=== PATIENT | female | born 1945 | race Caucasian/White ===

== ENCOUNTER 2017-04-14 11:02 | Emergency (ER) | payer MEDICARE, OTHER ==
[~2017-04-14] VITALS: Ht 157.5 cm; Wt 97.5 kg
[~2017-04-14 11:02] MED LIST: ALLO100 PO; AMIT50 PO; AMLO10 PO; ASPI81CH PO; ATOR20 PO; ATOR40TA PO; ATOR80 PO; BENAML10/5 PO; BUPR150ER PO; CALCIUM 500 +1 EAC3 PO; CARBIDOPA PO; CEPH500 PO; CHLO25B PO; CHLOR PO; CHOL10002 PO; CLARITIN5 MG PO; CLOP75 PO; DIPASPER PO; DOCU100 PO; FURO20 PO; FURO40 PO; Ferrous Sulfat325 M2 PO; GABA100 PO; GABA300 PO; HYDACE10B PO; HYDCHL25 PO; Hair, Skin & N1 EACH PO; Keflex500 MG PO; Keppra1000 MG PO; LAVAP17G PO; LEVFLO500 PO; LEVODOPA PO; LEVSOD125 PO; LIDO5TO TOP; MECL12.5 PO; MECL25 PO; MELA3 PO; METF500 PO; METRIBP PO; MIRALAX17 GM PO; MIRAPEX PO; Melatonin5 M1 PO; Motion Sickness25 M1 PO; Motion Sickness25 M4 PO; OLME20 PO; OLME20-12. PO; ONDA4 PO; ONDA4ODT MM; PANT40 PO; POTA20PAC PO; POTASSIUM CHLO20 MEQ PO; POTCHL10ER PO; POTCHL20ER PO; PRAM.5 PO; PRAV20 PO; PRAV40 PO; PRED1 PO; SERT50 PO; Senna-Docusate1 EACH PO; TOPI25 PO; Tylophen500 MG PO; Ventolin5 MG/1 ML IH; Vitamin B Comple1 EA PO; XARELTO20 MG PO; ZYRTEC10 M1 PO; [UNRECOGNIZED DRUG - OTHER]; [UNRECOGNIZED DRUG - OTHER] PO
[2017-04-14 12:21] LABS: BASOPHILS ABSOLUTE AUTO 0.08 K/mm3 (0.00-0.23); BASOPHILS PERCENT AUTO 1 % (0-2); EOSINOPHILS ABSOLUTE AUTO 0.17 K/mm3 (0.00-0.68); EOSINOPHILS PERCENT AUTO 2 % (0-6); Hematocrit 40.9 % (33.0-51.0); Hemoglobin 13.9 g/dL (11.5-16.0); IMMATURE GRAN ABSOLUTE AUTO 0.05 K/mm3 (0.00-0.10); IMMATURE GRAN PERCENT AUTO 1 % (0-1); LYMPHOCYTES PERCENT AUTO 23 % (21-46); MONOCYTES ABSOLUTE AUTO 0.67 K/mm3 (0.16-1.47); MONOCYTES PERCENT AUTO 7 % (4-13); Mean Corpuscular HGB 30.5 pg (26.0-34.0); Mean Corpuscular Volume 90 fL (80-100); Mean Platelet Volume 10.8 fL (9.1-12.4); NEUTROPHILS PERCENT AUTO 67 % (41-73); Platelet Count 261 K/mm3 (150-400); RDW Standard Deviation 42.5 fL (35.1-46.3); Red Blood Cell Count 4.56 M/mm3 (3.80-5.20); White Blood Cell Count 9.67 K/mm3 (4.00-11.30)
[2017-04-14 12:49] LABS: Alanine Aminotransfer (ALT/SGP 27 U/L (12-78); Albumin, Blood 3.9 g/dL (3.4-5.0); Alk Phos 55 U/L (50-136); Anion Gap 9 mmol/L (6-16); Aspartate Aminotrans (AST/SGOT 14 U/L (12-37); Bilirubin, Total 0.4 mg/dL (0.1-1.0); Blood Urea Nitrogen 22 mg/dL (8-24); Bun/Creatinine Ratio 32.5 (12.0-20.0); CO2, Blood 31 mmol/L (21-32); Calcium, Blood 9.7 mg/dL (8.5-10.1); Chloride, Blood 100 mmol/L (98-108); Creatinine, Blood 0.68 mg/dL (0.40-1.00); Globulin, Blood 3.8 g/dL (2.2-4.0); Glomerular Filtration Rate >60 (60-); Glucose, Blood 351 mg/dL (70-99); Potassium, Blood 3.5 mmol/L (3.5-5.5); Sodium, Blood 140 mmol/L (136-145); Total Protein, Blood 7.7 g/dL (6.4-8.2)
[2017-04-14 14:21] LABS: Source, Urine Catheter
[2017-04-14 14:38] LABS: Bilirubin, Urine Neg (Neg); Blood, Urine Neg (Neg); Glucose Qualitative, Urine 4+ (Neg); Ketones, Urine Neg (Neg); Leukocyte Esterase, Urine 2+ (Neg); Nitrite, Urine Pos (Neg); Protein, Urine Neg (Neg); Specific Gravity, Urine 1.015 (1.003-1.022); Urobilinogen, Urine NORM (Normal)
[2017-04-14 14:52] LABS: Appearance, Urine Hazy (Clear); Color, Urine Pale Yellow (P-Yellow)
[2017-04-14 14:54] LABS: Bacteria Many /hpf; Red Blood Cells, Urine 0-2 /hpf (0-2); Squamous Epithelial Cells Few /hpf (Few)
[2017-04-14] MEDS ORDERED: FLUC150A PO (15:02)
[2017-04-14] MEDS ORDERED: LEVFLO500 PO (15:02)
[2017-07-15] MEDS ORDERED: METF500C PO (23:40)
== END 2017-04-14 15:47 | disposition home or self-care (01) ==
LOC: ER 11:02
PROVIDERS: Emergency Medicine
DX: N39.0 Urinary tract infection, site not specified (principal); E11.65 Type 2 diabetes mellitus with hyperglycemia; I10 Essential (primary) hypertension; K21.9 Gastro-esophageal reflux disease without esophagitis; E03.9 Hypothyroidism, unspecified; Z88.8 Allergy status to other drugs, medicaments and biological substances; Z88.5 Allergy status to narcotic agent; Z88.2 Allergy status to sulfonamides; Z88.1 Allergy status to other antibiotic agents; Z79.899 Other long term (current) drug therapy; Z86.73 Personal history of transient ischemic attack (TIA), and cerebral infarction without residual deficits; F32.9 Major depressive disorder, single episode, unspecified
CPT/HCPCS: 36415; 80053; 81001; 82947; 85025; 87077; 87086; 87186; 93005; 93010; 99284; P9612

== ENCOUNTER 2017-05-12 10:20 | Emergency (ER) | payer MEDICARE, OTHER ==
[~2017-05-12] VITALS: Ht 157.5 cm; Wt 102.1 kg
[~2017-05-12 10:20] MED LIST changes: +FLUC150A PO
[2017-05-12] MEDS ORDERED: CLOP75 PO (10:42)
[2017-05-12 11:35] LABS: BASOPHILS ABSOLUTE AUTO 0.07 K/mm3 (0.00-0.23); BASOPHILS PERCENT AUTO 1 % (0-2); EOSINOPHILS ABSOLUTE AUTO 0.18 K/mm3 (0.00-0.68); EOSINOPHILS PERCENT AUTO 2 % (0-6); Hematocrit 43.1 % (33.0-51.0); Hemoglobin 14.8 g/dL (11.5-16.0); IMMATURE GRAN ABSOLUTE AUTO 0.06 K/mm3 (0.00-0.10); IMMATURE GRAN PERCENT AUTO 1 % (0-1); LYMPHOCYTES PERCENT AUTO 23 % (21-46); MONOCYTES ABSOLUTE AUTO 0.63 K/mm3 (0.16-1.47); MONOCYTES PERCENT AUTO 7 % (4-13); Mean Corpuscular HGB 30.8 pg (26.0-34.0); Mean Corpuscular HGB Conc 34.3 g/dL (31.5-36.5); Mean Corpuscular Volume 90 fL (80-100); Mean Platelet Volume 10.7 fL (9.1-12.4); NEUTROPHILS ABSOLUTE AUTO 6.34 K/mm3 (1.96-9.15); NEUTROPHILS PERCENT AUTO 67 % (41-73); Platelet Count 291 K/mm3 (150-400); RDW Coefficient Variation 12.9 % (11.7-14.2); RDW Standard Deviation 42.2 fL (35.1-46.3); White Blood Cell Count 9.48 K/mm3 (4.00-11.30)
[2017-05-12 11:57] LABS: Troponin I <0.015 ng/mL (0.000-0.040)
[2017-05-12 12:06] LABS: Alanine Aminotransfer (ALT/SGP 28 U/L (12-78); Albumin, Blood 4.1 g/dL (3.4-5.0); Alk Phos 56 U/L (50-136); Anion Gap 13 mmol/L (6-16); Aspartate Aminotrans (AST/SGOT 16 U/L (12-37); Bilirubin, Total 0.4 mg/dL (0.1-1.0); Blood Urea Nitrogen 20 mg/dL (8-24); Bun/Creatinine Ratio 32.3 (12.0-20.0); CO2, Blood 26 mmol/L (21-32); Calcium, Blood 10.1 mg/dL (8.5-10.1); Chloride, Blood 100 mmol/L (98-108); Creatinine, Blood 0.62 mg/dL (0.40-1.00); Globulin, Blood 4.1 g/dL (2.2-4.0); Glomerular Filtration Rate >60 (60-); Glucose, Blood 196 mg/dL (70-99); Potassium, Blood 3.3 mmol/L (3.5-5.5); Sodium, Blood 139 mmol/L (136-145); Total Protein, Blood 8.2 g/dL (6.4-8.2)
[2017-05-12 13:55] LABS: Source, Urine Clean Catch
[2017-05-12 14:05] LABS: Bilirubin, Urine Neg (Neg); Blood, Urine 1+ (Neg); Glucose Qualitative, Urine Neg (Neg); Ketones, Urine Neg (Neg); Leukocyte Esterase, Urine 3+ (Neg); Nitrite, Urine Pos (Neg); Protein, Urine Neg (Neg); Urobilinogen, Urine NORM (Normal)
[2017-05-12 14:29] LABS: Appearance, Urine Hazy (Clear); Color, Urine Yellow (P-Yellow)
[2017-05-12 14:30] LABS: Amorphous Heavy (0-Heavy); Bacteria Many /hpf; Squamous Epithelial Cells Few /hpf (Few)
[2017-05-12] MEDS ORDERED: CEPH500 PO ×2 (14:35→15:10)
[2017-07-15] MEDS ORDERED: METF500C PO (23:40)
== END 2017-05-12 15:30 | disposition home or self-care (01) ==
LOC: ER 10:20
PROVIDERS: Emergency Medicine
DX: S09.90XA Unspecified injury of head, initial encounter (principal); N39.0 Urinary tract infection, site not specified; F03.90 Unspecified dementia, unspecified severity, without behavioral disturbance, psychotic disturbance, mood disturbance, and anxiety; I10 Essential (primary) hypertension; K21.9 Gastro-esophageal reflux disease without esophagitis; E03.9 Hypothyroidism, unspecified; F32.9 Major depressive disorder, single episode, unspecified; Z88.8 Allergy status to other drugs, medicaments and biological substances; Z86.73 Personal history of transient ischemic attack (TIA), and cerebral infarction without residual deficits; Z88.5 Allergy status to narcotic agent; Z88.2 Allergy status to sulfonamides; Z88.1 Allergy status to other antibiotic agents; Z79.899 Other long term (current) drug therapy; Z79.02 Long term (current) use of antithrombotics/antiplatelets; W19.XXXA Unspecified fall, initial encounter; Y92.009 Unspecified place in unspecified non-institutional (private) residence as the place of occurrence of the external cause
CPT/HCPCS: 36415; 70450; 80053; 81001; 84484; 85025; 87077; 87086; 87186; 93005; 93010; 96374; 99284; J0696

== ENCOUNTER 2017-05-21 11:05 | Emergency (ER) | payer MEDICARE, OTHER ==
[~2017-05-21] VITALS: Ht 157.5 cm; Wt 102.1 kg
[2017-05-21 11:40] LABS: Source, Urine Catheter
[2017-05-21 11:51] LABS: Bilirubin, Urine Neg (Neg); Blood, Urine Neg (Neg); Glucose Qualitative, Urine Neg (Neg); Ketones, Urine Neg (Neg); Leukocyte Esterase, Urine Neg (Neg); Nitrite, Urine Neg (Neg); Protein, Urine 1+ (Neg); Urobilinogen, Urine NORM (Normal)
[2017-05-21 11:54] LABS: BASOPHILS ABSOLUTE AUTO 0.09 K/mm3 (0.00-0.23); BASOPHILS PERCENT AUTO 1 % (0-2); EOSINOPHILS ABSOLUTE AUTO 0.22 K/mm3 (0.00-0.68); EOSINOPHILS PERCENT AUTO 2 % (0-6); Hematocrit 43.2 % (33.0-51.0); Hemoglobin 14.5 g/dL (11.5-16.0); IMMATURE GRAN ABSOLUTE AUTO 0.06 K/mm3 (0.00-0.10); IMMATURE GRAN PERCENT AUTO 1 % (0-1); LYMPHOCYTES ABSOLUTE AUTO 2.59 K/mm3 (0.84-5.20); LYMPHOCYTES PERCENT AUTO 22 % (21-46); MONOCYTES ABSOLUTE AUTO 0.78 K/mm3 (0.16-1.47); MONOCYTES PERCENT AUTO 7 % (4-13); Mean Corpuscular HGB 30.9 pg (26.0-34.0); Mean Corpuscular HGB Conc 33.6 g/dL (31.5-36.5); Mean Corpuscular Volume 92 fL (80-100); Mean Platelet Volume 10.8 fL (9.1-12.4); NEUTROPHILS ABSOLUTE AUTO 7.82 K/mm3 (1.96-9.15); NEUTROPHILS PERCENT AUTO 68 % (41-73); Platelet Count 296 K/mm3 (150-400); RDW Coefficient Variation 12.9 % (11.7-14.2); RDW Standard Deviation 43.4 fL (35.1-46.3); Red Blood Cell Count 4.69 M/mm3 (3.80-5.20); White Blood Cell Count 11.56 K/mm3 (4.00-11.30)
[2017-05-21 12:06] LABS: Appearance, Urine Clear (Clear); Color, Urine Yellow (P-Yellow)
[2017-05-21 12:09] LABS: Alanine Aminotransfer (ALT/SGP 28 U/L (12-78); Albumin, Blood 4.1 g/dL (3.4-5.0); Alk Phos 56 U/L (50-136); Anion Gap 8 mmol/L (6-16); Aspartate Aminotrans (AST/SGOT 15 U/L (12-37); Bilirubin, Total 0.4 mg/dL (0.1-1.0); Blood Urea Nitrogen 23 mg/dL (8-24); Bun/Creatinine Ratio 37.3 (12.0-20.0); CO2, Blood 27 mmol/L (21-32); Calcium, Blood 9.8 mg/dL (8.5-10.1); Chloride, Blood 101 mmol/L (98-108); Creatinine, Blood 0.62 mg/dL (0.40-1.00); Globulin, Blood 4.2 g/dL (2.2-4.0); Glomerular Filtration Rate >60 (60-); Glucose, Blood 231 mg/dL (70-99); Potassium, Blood 3.4 mmol/L (3.5-5.5); Sodium, Blood 136 mmol/L (136-145); Total Protein, Blood 8.3 g/dL (6.4-8.2)
[2017-07-15] MEDS ORDERED: METF500C PO (23:40)
== END 2017-05-21 13:48 | disposition home or self-care (01) ==
LOC: ER 11:05
PROVIDERS: Emergency Medicine
DX: E87.6 Hypokalemia (principal); R53.1 Weakness; E86.0 Dehydration; R11.0 Nausea; Z88.8 Allergy status to other drugs, medicaments and biological substances; Z88.5 Allergy status to narcotic agent; Z88.2 Allergy status to sulfonamides; Z79.899 Other long term (current) drug therapy; Z86.73 Personal history of transient ischemic attack (TIA), and cerebral infarction without residual deficits; I10 Essential (primary) hypertension; F03.90 Unspecified dementia, unspecified severity, without behavioral disturbance, psychotic disturbance, mood disturbance, and anxiety; K21.9 Gastro-esophageal reflux disease without esophagitis; E03.9 Hypothyroidism, unspecified
CPT/HCPCS: 80053; 85025; 96360; 99284; J7030; P9612

== ENCOUNTER 2017-07-10 14:47 | Emergency (ER) | payer MEDICARE, OTHER ==
[~2017-07-10] VITALS: Ht 157.5 cm; Wt 97.5 kg
[~2017-07-10 14:47] MED LIST changes: +ACET325 PO; +CLOP75; -POTA20PAC PO; -Tylophen500 MG PO
[2017-07-10 17:59] LABS: Source, Urine Catheter
[2017-07-10 18:11] LABS: Bilirubin, Urine Neg (Neg); Blood, Urine 1+ (Neg); Color, Urine Yellow (P-Yellow); Glucose Qualitative, Urine Neg (Neg); Ketones, Urine Neg (Neg); Leukocyte Esterase, Urine 3+ (Neg); Nitrite, Urine Pos (Neg); Protein, Urine 2+ (Neg); Urobilinogen, Urine NORM (Normal)
[2017-07-10 18:43] LABS: Appearance, Urine Cloudy (Clear)
[2017-07-10 18:44] LABS: Bacteria Many /hpf; Squamous Epithelial Cells Few /hpf (Few); White Blood Cells, Urine TNTC /hpf (0-5)
[2017-07-10] MEDS ORDERED: CEPH500 PO (18:53)
== END 2017-07-10 19:15 | disposition home or self-care (01) ==
LOC: ER 14:47
PROVIDERS: Emergency Medicine
DX: N39.0 Urinary tract infection, site not specified (principal); E03.9 Hypothyroidism, unspecified; E11.9 Type 2 diabetes mellitus without complications; F32.9 Major depressive disorder, single episode, unspecified; K21.9 Gastro-esophageal reflux disease without esophagitis; Z79.899 Other long term (current) drug therapy
CPT/HCPCS: 81001; 87077; 87086; 87186; P9612

== ENCOUNTER 2017-07-15 12:39 | Observation (INO) | payer MEDICARE, OTHER ==
[~2017-07-15] VITALS: Ht 154.9 cm; Wt 87.4 kg
[~2017-07-15 12:39] MED LIST changes: -CLOP75
[2017-07-15 13:54] LABS: BASOPHILS ABSOLUTE AUTO 0.07 K/mm3 (0.00-0.23); BASOPHILS PERCENT AUTO 1 % (0-2); EOSINOPHILS ABSOLUTE AUTO 0.19 K/mm3 (0.00-0.68); EOSINOPHILS PERCENT AUTO 2 % (0-6); Hematocrit 42.7 % (33.0-51.0); Hemoglobin 14.5 g/dL (11.5-16.0); IMMATURE GRAN ABSOLUTE AUTO 0.07 K/mm3 (0.00-0.10); IMMATURE GRAN PERCENT AUTO 1 % (0-1); LYMPHOCYTES ABSOLUTE AUTO 2.54 K/mm3 (0.84-5.20); LYMPHOCYTES PERCENT AUTO 25 % (21-46); MONOCYTES ABSOLUTE AUTO 0.71 K/mm3 (0.16-1.47); MONOCYTES PERCENT AUTO 7 % (4-13); Mean Corpuscular HGB 31.8 pg (26.0-34.0); Mean Corpuscular Volume 94 fL (80-100); Mean Platelet Volume 10.6 fL (9.1-12.4); NEUTROPHILS ABSOLUTE AUTO 6.71 K/mm3 (1.96-9.15); NEUTROPHILS PERCENT AUTO 65 % (41-73); Platelet Count 278 K/mm3 (150-400); RDW Coefficient Variation 12.6 % (11.7-14.2); RDW Standard Deviation 43.2 fL (35.1-46.3); Red Blood Cell Count 4.56 M/mm3 (3.80-5.20); White Blood Cell Count 10.29 K/mm3 (4.00-11.30)
[2017-07-15 14:25] LABS: Alanine Aminotransfer (ALT/SGP 34 U/L (12-78); Albumin/Globulin Ratio 1.1 (0.8-1.8); Alk Phos 50 U/L (50-136); Anion Gap 8 mmol/L (6-16); Aspartate Aminotrans (AST/SGOT 14 U/L (12-37); Bilirubin, Total 0.4 mg/dL (0.1-1.0); Blood Urea Nitrogen 22 mg/dL (8-24); Bun/Creatinine Ratio 30.5 (12.0-20.0); CO2, Blood 30 mmol/L (21-32); Calcium, Blood 10.2 mg/dL (8.5-10.1); Chloride, Blood 102 mmol/L (98-108); Creatinine, Blood 0.72 mg/dL (0.40-1.00); Globulin, Blood 3.8 g/dL (2.2-4.0); Glomerular Filtration Rate >60 (60-); Glucose, Blood 164 mg/dL (70-99); Potassium, Blood 3.5 mmol/L (3.5-5.5); Sodium, Blood 140 mmol/L (136-145); Total Protein, Blood 7.8 g/dL (6.4-8.2)
[2017-07-15 15:40] LABS: Troponin I <0.015 ng/mL (0.000-0.040)
[2017-07-15] MEDS ORDERED: METF500 PO (23:40)
[2017-07-16 04:55] LABS: Hematocrit 38.1 % (33.0-51.0); Mean Corpuscular HGB 31.9 pg (26.0-34.0); Mean Corpuscular HGB Conc 34.1 g/dL (31.5-36.5); Mean Corpuscular Volume 94 fL (80-100); Mean Platelet Volume 10.5 fL (9.1-12.4); Platelet Count 229 K/mm3 (150-400); RDW Coefficient Variation 12.6 % (11.7-14.2); Red Blood Cell Count 4.07 M/mm3 (3.80-5.20); White Blood Cell Count 8.53 K/mm3 (4.00-11.30)
[2017-07-16 05:16] LABS: Anion Gap 9 mmol/L (6-16); Blood Urea Nitrogen 17 mg/dL (8-24); Bun/Creatinine Ratio 27.8 (12.0-20.0); CO2, Blood 27 mmol/L (21-32); Calcium, Blood 9.3 mg/dL (8.5-10.1); Chloride, Blood 105 mmol/L (98-108); Creatinine, Blood 0.61 mg/dL (0.40-1.00); Glomerular Filtration Rate >60 (60-); Glucose, Blood 154 mg/dL (70-99); Potassium, Blood 3.3 mmol/L (3.5-5.5); Sodium, Blood 141 mmol/L (136-145)
[2017-07-17 06:16] LABS: Anion Gap 10 mmol/L (6-16); Blood Urea Nitrogen 16 mg/dL (8-24); Bun/Creatinine Ratio 26.2 (12.0-20.0); CO2, Blood 27 mmol/L (21-32); Calcium, Blood 9.7 mg/dL (8.5-10.1); Chloride, Blood 104 mmol/L (98-108); Creatinine, Blood 0.61 mg/dL (0.40-1.00); Glomerular Filtration Rate >60 (60-); Glucose, Blood 164 mg/dL (70-99); Magnesium, Blood 1.5 mg/dL (1.6-2.4); Potassium, Blood 3.2 mmol/L (3.5-5.5); Sodium, Blood 141 mmol/L (136-145)
[2017-07-17] MEDS ORDERED: CEFU500T30 PO (12:00)
== END 2017-07-17 12:41 | disposition home or self-care (01) ==
LOC: ER 12:39 → MEDS 12:40 → UNDODEPER 07-16 05:50 → MEDS 07-17 08:07 → ENPENDDIS 07-17 11:00 → MEDS 07-17 12:41
PROVIDERS: Emergency Medicine; Internal Medicine; Nurse Practitioner Acute Care
DX: R53.1 Weakness (principal); N39.0 Urinary tract infection, site not specified; B96.20 Unspecified Escherichia coli [E. coli] as the cause of diseases classified elsewhere; E86.0 Dehydration; I10 Essential (primary) hypertension; F32.9 Major depressive disorder, single episode, unspecified; E03.9 Hypothyroidism, unspecified; E11.9 Type 2 diabetes mellitus without complications; K21.9 Gastro-esophageal reflux disease without esophagitis; M06.9 Rheumatoid arthritis, unspecified; R51 Headache; R44.3 Hallucinations, unspecified; Z86.73 Personal history of transient ischemic attack (TIA), and cerebral infarction without residual deficits; Z79.02 Long term (current) use of antithrombotics/antiplatelets; Z79.899 Other long term (current) drug therapy; Z88.5 Allergy status to narcotic agent; Z88.8 Allergy status to other drugs, medicaments and biological substances; Z88.2 Allergy status to sulfonamides; Z79.01 Long term (current) use of anticoagulants; Z87.440 Personal history of urinary (tract) infections
CPT/HCPCS: 36415; 70450; 71046; 80048; 80053; 81000; 82947; 83690; 83735; 83880; 84100; 84484; 85025; 85027; 93005; 93010; 94762; 96361; 96365; 96366; 96372; 96375; 97162; 97166; 97530; 99285; G0378; G8978; G8979; G8980; G8987; G8988; G8989; J0696; J1650; J3475; J7030; P9612

== ENCOUNTER 2017-08-13 18:50 | Inpatient (IN) | payer MEDICARE, OTHER ==
[~2017-08-13] VITALS: Ht 167.6 cm; Wt 94.2 kg
[~2017-08-13 18:50] MED LIST changes: +CEFU500T30 PO; +METF500C PO
[2017-08-13 19:00] LABS: Calcium, Ionized (POC) 1.24 mmol/L (1.10-1.46); Chloride (POC) 102 mmol/L (98-108); Creatinine (POC) 0.6 mg/dL (0.6-1.0); Glucose (ISTAT POC) 128 mg/dL (70-99); Hemoglobin (POC) 15.6 g/dL (12.0-16.0); Potassium (POC) 3.7 mmol/L (3.5-5.5); Sodium (POC) 140 mmol/L (135-148); Total CO2 (POC) 19 mmol/L (21-32)
[2017-08-13 19:03] LABS: Hematocrit 45.2 % (33.0-51.0); Hemoglobin 15.2 g/dL (11.5-16.0); Mean Corpuscular HGB Conc 33.6 g/dL (31.5-36.5); Mean Corpuscular Volume 95 fL (80-100); Mean Platelet Volume 10.6 fL (9.1-12.4); Platelet Count 283 K/mm3 (150-400); RDW Coefficient Variation 12.5 % (11.7-14.2); RDW Standard Deviation 43.3 fL (35.1-46.3); Red Blood Cell Count 4.75 M/mm3 (3.80-5.20); White Blood Cell Count 15.57 K/mm3 (4.00-11.30)
[2017-08-13 19:21] LABS: BASOPHILS ABSOLUTE MAN 0.15 K/mm3 (0.00-0.23); BASOPHILS PERCENT MAN 1 % (0-2); EOSINOPHILS ABSOLUTE MAN 0.46 K/mm3 (0.00-0.68); EOSINOPHILS PERCENT MAN 3 % (0-6); LYMPHOCYTES % ATYPICAL MANUAL 10 % (0-0); LYMPHOCYTES PERCENT MAN 35 % (21-46); MONOCYTES ABSOLUTE MAN 0.46 K/mm3 (0.16-1.47); MONOCYTES PERCENT MAN 3 % (4-13); NEUTROPHILS ABSOLUTE MAN 7.47 K/mm3 (1.96-9.15); SEG NEUTROPHILS PERCENT MAN 48 % (41-73); TOTAL CELLS COUNTED 100
[2017-08-13 19:27] LABS: Magnesium, Blood 1.6 mg/dL (1.6-2.4); Troponin I <0.015 ng/mL (0.000-0.040)
[2017-08-13 19:31] LABS: Alanine Aminotransfer (ALT/SGP 35 U/L (12-78); Albumin, Blood 4.4 g/dL (3.4-5.0); Albumin/Globulin Ratio 1.1 (0.8-1.8); Alk Phos 54 U/L (50-136); Anion Gap 18 mmol/L (6-16); Aspartate Aminotrans (AST/SGOT 15 U/L (12-37); Bilirubin, Total 0.3 mg/dL (0.1-1.0); Blood Urea Nitrogen 20 mg/dL (8-24); Bun/Creatinine Ratio 27.8 (12.0-20.0); CO2, Blood 19 mmol/L (21-32); Calcium, Blood 10.1 mg/dL (8.5-10.1); Chloride, Blood 102 mmol/L (98-108); Creatinine, Blood 0.72 mg/dL (0.40-1.00); Globulin, Blood 3.9 g/dL (2.2-4.0); Glomerular Filtration Rate >60 (60-); Glucose, Blood 131 mg/dL (70-99); Potassium, Blood 3.7 mmol/L (3.5-5.5); Sodium, Blood 139 mmol/L (136-145); Total Protein, Blood 8.3 g/dL (6.4-8.2)
[2017-08-13 19:33] LABS: Source, Urine Catheter
[2017-08-13 19:53] LABS: Appearance, Urine Hazy (Clear); Bilirubin, Urine Neg (Neg); Blood, Urine 1+ (Neg); Color, Urine Yellow (P-Yellow); Glucose Qualitative, Urine Neg (Neg); Ketones, Urine 2+ (Neg); Leukocyte Esterase, Urine Neg (Neg); Nitrite, Urine Neg (Neg); Protein, Urine 3+ (Neg); Urobilinogen, Urine NORM (Normal)
[2017-08-13 20:06] LABS: Amorphous Mod (0-Heavy); Bacteria Few /hpf; Red Blood Cells, Urine 0-2 /hpf (0-2); Squamous Epithelial Cells Few /hpf (Few); White Blood Cells, Urine 0-2 /hpf (0-5)
[2017-08-14 04:46] LABS: Hematocrit 38.1 % (33.0-51.0); Hemoglobin 13.1 g/dL (11.5-16.0); Mean Corpuscular HGB 31.9 pg (26.0-34.0); Mean Corpuscular HGB Conc 34.4 g/dL (31.5-36.5); Mean Corpuscular Volume 93 fL (80-100); Mean Platelet Volume 10.5 fL (9.1-12.4); Platelet Count 252 K/mm3 (150-400); RDW Coefficient Variation 12.5 % (11.7-14.2); Red Blood Cell Count 4.11 M/mm3 (3.80-5.20); White Blood Cell Count 13.29 K/mm3 (4.00-11.30)
[2017-08-14 05:02] LABS: Anion Gap 8 mmol/L (6-16); Blood Urea Nitrogen 15 mg/dL (8-24); Bun/Creatinine Ratio 21.7 (12.0-20.0); CO2, Blood 30 mmol/L (21-32); Calcium, Blood 9.5 mg/dL (8.5-10.1); Chloride, Blood 101 mmol/L (98-108); Creatinine, Blood 0.69 mg/dL (0.40-1.00); Glomerular Filtration Rate >60 (60-); Glucose, Blood 158 mg/dL (70-99); Magnesium, Blood 1.6 mg/dL (1.6-2.4); Potassium, Blood 3.3 mmol/L (3.5-5.5); Sodium, Blood 139 mmol/L (136-145)
[2017-08-15 08:18] LABS: Anion Gap 8 mmol/L (6-16); Blood Urea Nitrogen 10 mg/dL (8-24); Bun/Creatinine Ratio 14.3 (12.0-20.0); CO2, Blood 31 mmol/L (21-32); Chloride, Blood 106 mmol/L (98-108); Glomerular Filtration Rate >60 (60-); Glucose, Blood 145 mg/dL (70-99); Magnesium, Blood 1.5 mg/dL (1.6-2.4); Potassium, Blood 3.6 mmol/L (3.5-5.5); Sodium, Blood 145 mmol/L (136-145)
[2017-08-16 05:25] LABS: BASOPHILS ABSOLUTE AUTO 0.05 K/mm3 (0.00-0.23); BASOPHILS PERCENT AUTO 1 % (0-2); EOSINOPHILS ABSOLUTE AUTO 0.25 K/mm3 (0.00-0.68); EOSINOPHILS PERCENT AUTO 2 % (0-6); Hematocrit 39.9 % (33.0-51.0); Hemoglobin 13.6 g/dL (11.5-16.0); IMMATURE GRAN ABSOLUTE AUTO 0.09 K/mm3 (0.00-0.10); IMMATURE GRAN PERCENT AUTO 1 % (0-1); LYMPHOCYTES ABSOLUTE AUTO 2.97 K/mm3 (0.84-5.20); LYMPHOCYTES PERCENT AUTO 29 % (21-46); MONOCYTES ABSOLUTE AUTO 0.79 K/mm3 (0.16-1.47); MONOCYTES PERCENT AUTO 8 % (4-13); Mean Corpuscular HGB 31.5 pg (26.0-34.0); Mean Corpuscular HGB Conc 34.1 g/dL (31.5-36.5); Mean Corpuscular Volume 92 fL (80-100); Mean Platelet Volume 10.5 fL (9.1-12.4); NEUTROPHILS ABSOLUTE AUTO 6.16 K/mm3 (1.96-9.15); NEUTROPHILS PERCENT AUTO 60 % (41-73); Platelet Count 260 K/mm3 (150-400); RDW Coefficient Variation 12.7 % (11.7-14.2); RDW Standard Deviation 42.4 fL (35.1-46.3); Red Blood Cell Count 4.32 M/mm3 (3.80-5.20); White Blood Cell Count 10.31 K/mm3 (4.00-11.30)
[2017-08-16 05:47] LABS: Magnesium, Blood 1.6 mg/dL (1.6-2.4)
[2017-08-16 05:50] LABS: Anion Gap 9 mmol/L (6-16); Blood Urea Nitrogen 11 mg/dL (8-24); Bun/Creatinine Ratio 15.8 (12.0-20.0); CO2, Blood 30 mmol/L (21-32); Calcium, Blood 9.7 mg/dL (8.5-10.1); Chloride, Blood 102 mmol/L (98-108); Glomerular Filtration Rate >60 (60-); Glucose, Blood 139 mg/dL (70-99); Phosphorus, Blood 2.1 mg/dL (2.5-4.9); Potassium, Blood 3.2 mmol/L (3.5-5.5); Sodium, Blood 141 mmol/L (136-145)
[2017-08-17 05:15] LABS: Albumin, Blood 3.6 g/dL (3.4-5.0); Anion Gap 10 mmol/L (6-16); Blood Urea Nitrogen 11 mg/dL (8-24); Bun/Creatinine Ratio 17.4 (12.0-20.0); CO2, Blood 28 mmol/L (21-32); Calcium, Blood 10.3 mg/dL (8.5-10.1); Chloride, Blood 102 mmol/L (98-108); Creatinine, Blood 0.63 mg/dL (0.40-1.00); Glomerular Filtration Rate >60 (60-); Glucose, Blood 155 mg/dL (70-99); Phosphorus, Blood 3.5 mg/dL (2.5-4.9); Potassium, Blood 3.2 mmol/L (3.5-5.5); Sodium, Blood 140 mmol/L (136-145)
[2017-08-18 05:25] LABS: Albumin, Blood 3.6 g/dL (3.4-5.0); Anion Gap 8 mmol/L (6-16); Blood Urea Nitrogen 20 mg/dL (8-24); Bun/Creatinine Ratio 23.7 (12.0-20.0); CO2, Blood 28 mmol/L (21-32); Chloride, Blood 105 mmol/L (98-108); Creatinine, Blood 0.85 mg/dL (0.40-1.00); Glomerular Filtration Rate >60 (60-); Glucose, Blood 164 mg/dL (70-99); Potassium, Blood 3.6 mmol/L (3.5-5.5); Sodium, Blood 141 mmol/L (136-145)
[2017-08-19 06:02] LABS: Albumin, Blood 3.5 g/dL (3.4-5.0); Anion Gap 9 mmol/L (6-16); Blood Urea Nitrogen 26 mg/dL (8-24); Bun/Creatinine Ratio 35.6 (12.0-20.0); CO2, Blood 29 mmol/L (21-32); Calcium, Blood 9.9 mg/dL (8.5-10.1); Chloride, Blood 103 mmol/L (98-108); Creatinine, Blood 0.73 mg/dL (0.40-1.00); Glomerular Filtration Rate >60 (60-); Glucose, Blood 158 mg/dL (70-99); Phosphorus, Blood 2.7 mg/dL (2.5-4.9); Potassium, Blood 3.1 mmol/L (3.5-5.5); Sodium, Blood 141 mmol/L (136-145)
[2017-08-19] MEDS ORDERED: DILANTIN PO (14:34)
== END 2017-08-19 15:16 | disposition home health service (06) | DRG 101 ==
LOC: ER 18:50 → ICUW 21:02 → MEDS 21:02 → ICUW 22:04 → MEDS 22:55
PROVIDERS: Emergency Medicine; Internal Medicine; Nurse Practitioner Acute Care
PROC: 5A09357 Assistance with Respiratory Ventilation, Less than 24 Consecutive Hours, Continuous Positive Airway Pressure (ICD-10-PCS; principal; 2017-08-17)
DX: G40.89 Other seizures (principal); E87.2 Acidosis; I69.354 Hemiplegia and hemiparesis following cerebral infarction affecting left non-dominant side; N39.0 Urinary tract infection, site not specified; G47.33 Obstructive sleep apnea (adult) (pediatric); D72.829 Elevated white blood cell count, unspecified; B96.20 Unspecified Escherichia coli [E. coli] as the cause of diseases classified elsewhere; E11.65 Type 2 diabetes mellitus with hyperglycemia; E87.6 Hypokalemia; E83.42 Hypomagnesemia; E83.52 Hypercalcemia; E83.39 Other disorders of phosphorus metabolism; R53.1 Weakness; R53.81 Other malaise; D86.9 Sarcoidosis, unspecified; E78.5 Hyperlipidemia, unspecified; M06.9 Rheumatoid arthritis, unspecified; M10.9 Gout, unspecified; E03.9 Hypothyroidism, unspecified; F32.9 Major depressive disorder, single episode, unspecified; K21.9 Gastro-esophageal reflux disease without esophagitis; Z79.84 Long term (current) use of oral hypoglycemic drugs; Z79.02 Long term (current) use of antithrombotics/antiplatelets; Z79.899 Other long term (current) drug therapy; Z87.440 Personal history of urinary (tract) infections; Z88.8 Allergy status to other drugs, medicaments and biological substances; Z86.79 Personal history of other diseases of the circulatory system; Z98.890 Other specified postprocedural states
CPT/HCPCS: 36415; 51702; 70450; 71045; 80047; 80048; 80053; 80069; 81001; 82947; 83605; 83735; 84100; 84484; 85014; 85025; 85027; 87077; 87086; 87186; 93005; 93010; 94660; 94762; 96365; 96366; 96375; 97110; 97162; 97166; 97530; 99285; C1751; G8978; G8979; G8987; G8988; J0360; J1165; J1650; J1815; J1953; J2405; J3475; J7030; J7040; J7060; J7120

== ENCOUNTER 2017-10-01 07:29 | Inpatient (IN) | payer MEDICARE, OTHER ==
[~2017-10-01] VITALS: Ht 157.5 cm; Wt 87.0 kg
[~2017-10-01 07:29] MED LIST changes: -ACET325 PO; +DILANTIN PO; +POTA20PAC PO; +Tylophen500 MG PO
[2017-10-01] MEDS ORDERED: AZO CRANBERRY1 EACH PO (07:48)
[2017-10-01] MEDS ORDERED: PHENY100ER PO (07:54)
[2017-10-01 08:24] LABS: BASOPHILS ABSOLUTE AUTO 0.07 K/mm3 (0.00-0.23); BASOPHILS PERCENT AUTO 1 % (0-2); EOSINOPHILS PERCENT AUTO 2 % (0-6); Hematocrit 42.7 % (33.0-51.0); Hemoglobin 14.3 g/dL (11.5-16.0); IMMATURE GRAN ABSOLUTE AUTO 0.07 K/mm3 (0.00-0.10); IMMATURE GRAN PERCENT AUTO 1 % (0-1); LYMPHOCYTES PERCENT AUTO 30 % (21-46); MONOCYTES ABSOLUTE AUTO 0.48 K/mm3 (0.16-1.47); MONOCYTES PERCENT AUTO 6 % (4-13); Mean Corpuscular HGB 31.4 pg (26.0-34.0); Mean Corpuscular HGB Conc 33.5 g/dL (31.5-36.5); Mean Corpuscular Volume 94 fL (80-100); Mean Platelet Volume 10.9 fL (9.1-12.4); NEUTROPHILS ABSOLUTE AUTO 5.38 K/mm3 (1.96-9.15); NEUTROPHILS PERCENT AUTO 61 % (41-73); Platelet Count 280 K/mm3 (150-400); RDW Coefficient Variation 12.7 % (11.7-14.2); RDW Standard Deviation 43.4 fL (35.1-46.3); Red Blood Cell Count 4.56 M/mm3 (3.80-5.20)
[2017-10-01 09:06] LABS: Alanine Aminotransfer (ALT/SGP 52 U/L (12-78); Albumin, Blood 4.1 g/dL (3.4-5.0); Albumin/Globulin Ratio 1.1 (0.8-1.8); Alk Phos 70 U/L (50-136); Anion Gap 12 mmol/L (6-16); Aspartate Aminotrans (AST/SGOT 28 U/L (12-37); Bilirubin, Total 0.2 mg/dL (0.1-1.0); Blood Urea Nitrogen 20 mg/dL (8-24); CO2, Blood 26 mmol/L (21-32); CPK Creatine Kinase 61 U/L (26-193); Calcium, Blood 9.3 mg/dL (8.5-10.1); Chloride, Blood 101 mmol/L (98-108); Creatinine, Blood 0.67 mg/dL (0.40-1.00); Globulin, Blood 3.9 g/dL (2.2-4.0); Glomerular Filtration Rate >60 (60-); Glucose, Blood 177 mg/dL (70-99); Potassium, Blood 3.4 mmol/L (3.5-5.5); Sodium, Blood 139 mmol/L (136-145)
[2017-10-01 10:14] LABS: Dilantin (Phenytoin), Total 7.6 ug/mL (10.0-20.0)
[2017-10-01] MEDS ORDERED: SENNA LAXATIVE PO (12:08)
[2017-10-01] MEDS ORDERED: CENTRUM SILVER1 EAC3 PO (12:09)
[2017-10-02 05:28] LABS: BASOPHILS ABSOLUTE AUTO 0.04 K/mm3 (0.00-0.23); BASOPHILS PERCENT AUTO 0 % (0-2); EOSINOPHILS ABSOLUTE AUTO 0.13 K/mm3 (0.00-0.68); EOSINOPHILS PERCENT AUTO 1 % (0-6); Hematocrit 40.2 % (33.0-51.0); Hemoglobin 13.6 g/dL (11.5-16.0); IMMATURE GRAN ABSOLUTE AUTO 0.05 K/mm3 (0.00-0.10); IMMATURE GRAN PERCENT AUTO 0 % (0-1); LYMPHOCYTES ABSOLUTE AUTO 2.86 K/mm3 (0.84-5.20); LYMPHOCYTES PERCENT AUTO 25 % (21-46); MONOCYTES ABSOLUTE AUTO 0.94 K/mm3 (0.16-1.47); MONOCYTES PERCENT AUTO 8 % (4-13); Mean Corpuscular HGB 31.8 pg (26.0-34.0); Mean Corpuscular HGB Conc 33.8 g/dL (31.5-36.5); Mean Corpuscular Volume 94 fL (80-100); Mean Platelet Volume 10.9 fL (9.1-12.4); NEUTROPHILS ABSOLUTE AUTO 7.65 K/mm3 (1.96-9.15); NEUTROPHILS PERCENT AUTO 66 % (41-73); Platelet Count 263 K/mm3 (150-400); RDW Coefficient Variation 12.8 % (11.7-14.2); RDW Standard Deviation 43.6 fL (35.1-46.3); Red Blood Cell Count 4.28 M/mm3 (3.80-5.20); White Blood Cell Count 11.67 K/mm3 (4.00-11.30)
[2017-10-02 06:03] LABS: Alanine Aminotransfer (ALT/SGP 42 U/L (12-78); Albumin, Blood 3.5 g/dL (3.4-5.0); Alk Phos 63 U/L (50-136); Anion Gap 9 mmol/L (6-16); Aspartate Aminotrans (AST/SGOT 50 U/L (12-37); Bilirubin, Total 0.5 mg/dL (0.1-1.0); Blood Urea Nitrogen 12 mg/dL (8-24); Bun/Creatinine Ratio 20.6 (12.0-20.0); CO2, Blood 28 mmol/L (21-32); Calcium, Blood 8.7 mg/dL (8.5-10.1); Chloride, Blood 103 mmol/L (98-108); Creatinine, Blood 0.58 mg/dL (0.40-1.00); Dilantin (Phenytoin), Total 3.4 ug/mL (10.0-20.0); Globulin, Blood 3.6 g/dL (2.2-4.0); Glomerular Filtration Rate >60 (60-); Glucose, Blood 151 mg/dL (70-99); Magnesium, Blood 1.5 mg/dL (1.6-2.4); Potassium, Blood 3.1 mmol/L (3.5-5.5); Sodium, Blood 140 mmol/L (136-145); Total Protein, Blood 7.1 g/dL (6.4-8.2)
[2017-10-03 05:33] LABS: BASOPHILS ABSOLUTE AUTO 0.06 K/mm3 (0.00-0.23); BASOPHILS PERCENT AUTO 0 % (0-2); EOSINOPHILS ABSOLUTE AUTO 0.07 K/mm3 (0.00-0.68); EOSINOPHILS PERCENT AUTO 1 % (0-6); Hematocrit 44.1 % (33.0-51.0); Hemoglobin 14.8 g/dL (11.5-16.0); IMMATURE GRAN ABSOLUTE AUTO 0.09 K/mm3 (0.00-0.10); IMMATURE GRAN PERCENT AUTO 1 % (0-1); LYMPHOCYTES ABSOLUTE AUTO 2.69 K/mm3 (0.84-5.20); LYMPHOCYTES PERCENT AUTO 18 % (21-46); MONOCYTES ABSOLUTE AUTO 1.03 K/mm3 (0.16-1.47); MONOCYTES PERCENT AUTO 7 % (4-13); Mean Corpuscular HGB 31.9 pg (26.0-34.0); Mean Corpuscular HGB Conc 33.6 g/dL (31.5-36.5); Mean Corpuscular Volume 95 fL (80-100); Mean Platelet Volume 11.3 fL (9.1-12.4); NEUTROPHILS ABSOLUTE AUTO 10.84 K/mm3 (1.96-9.15); NEUTROPHILS PERCENT AUTO 73 % (41-73); Platelet Count 287 K/mm3 (150-400); RDW Coefficient Variation 13.1 % (11.7-14.2); RDW Standard Deviation 45.1 fL (35.1-46.3); Red Blood Cell Count 4.64 M/mm3 (3.80-5.20); White Blood Cell Count 14.78 K/mm3 (4.00-11.30)
[2017-10-03 06:01] LABS: Alanine Aminotransfer (ALT/SGP 46 U/L (12-78); Albumin, Blood 3.6 g/dL (3.4-5.0); Albumin/Globulin Ratio 0.9 (0.8-1.8); Alk Phos 73 U/L (50-136); Anion Gap 8 mmol/L (6-16); Aspartate Aminotrans (AST/SGOT 36 U/L (12-37); Bilirubin, Total 0.3 mg/dL (0.1-1.0); Blood Urea Nitrogen 10 mg/dL (8-24); Bun/Creatinine Ratio 13.8 (12.0-20.0); CO2, Blood 31 mmol/L (21-32); Calcium, Blood 9.1 mg/dL (8.5-10.1); Chloride, Blood 102 mmol/L (98-108); Creatinine, Blood 0.73 mg/dL (0.40-1.00); Globulin, Blood 3.9 g/dL (2.2-4.0); Glomerular Filtration Rate >60 (60-); Glucose, Blood 171 mg/dL (70-99); Magnesium, Blood 1.4 mg/dL (1.6-2.4); Potassium, Blood 3.3 mmol/L (3.5-5.5); Sodium, Blood 141 mmol/L (136-145); Total Protein, Blood 7.5 g/dL (6.4-8.2)
[2017-10-04 05:16] LABS: BASOPHILS ABSOLUTE AUTO 0.05 K/mm3 (0.00-0.23); BASOPHILS PERCENT AUTO 1 % (0-2); EOSINOPHILS ABSOLUTE AUTO 0.14 K/mm3 (0.00-0.68); EOSINOPHILS PERCENT AUTO 1 % (0-6); Hematocrit 39.9 % (33.0-51.0); Hemoglobin 13.3 g/dL (11.5-16.0); IMMATURE GRAN ABSOLUTE AUTO 0.07 K/mm3 (0.00-0.10); IMMATURE GRAN PERCENT AUTO 1 % (0-1); LYMPHOCYTES ABSOLUTE AUTO 2.28 K/mm3 (0.84-5.20); LYMPHOCYTES PERCENT AUTO 22 % (21-46); MONOCYTES ABSOLUTE AUTO 0.87 K/mm3 (0.16-1.47); MONOCYTES PERCENT AUTO 8 % (4-13); Mean Corpuscular HGB 31.9 pg (26.0-34.0); Mean Corpuscular HGB Conc 33.3 g/dL (31.5-36.5); Mean Corpuscular Volume 96 fL (80-100); NEUTROPHILS PERCENT AUTO 68 % (41-73); Platelet Count 247 K/mm3 (150-400); RDW Coefficient Variation 13.2 % (11.7-14.2); RDW Standard Deviation 45.8 fL (35.1-46.3); Red Blood Cell Count 4.17 M/mm3 (3.80-5.20); White Blood Cell Count 10.51 K/mm3 (4.00-11.30)
[2017-10-04 05:42] LABS: Alanine Aminotransfer (ALT/SGP 46 U/L (12-78); Albumin, Blood 3.2 g/dL (3.4-5.0); Albumin/Globulin Ratio 0.8 (0.8-1.8); Alk Phos 61 U/L (50-136); Anion Gap 9 mmol/L (6-16); Aspartate Aminotrans (AST/SGOT 30 U/L (12-37); Bilirubin, Total 0.4 mg/dL (0.1-1.0); Blood Urea Nitrogen 13 mg/dL (8-24); CO2, Blood 30 mmol/L (21-32); Chloride, Blood 103 mmol/L (98-108); Creatinine, Blood 0.65 mg/dL (0.40-1.00); Globulin, Blood 3.8 g/dL (2.2-4.0); Glomerular Filtration Rate >60 (60-); Glucose, Blood 156 mg/dL (70-99); Potassium, Blood 3.2 mmol/L (3.5-5.5); Sodium, Blood 142 mmol/L (136-145)
[2017-10-05 05:03] LABS: BASOPHILS ABSOLUTE AUTO 0.06 K/mm3 (0.00-0.23); BASOPHILS PERCENT AUTO 1 % (0-2); EOSINOPHILS ABSOLUTE AUTO 0.16 K/mm3 (0.00-0.68); EOSINOPHILS PERCENT AUTO 2 % (0-6); Hematocrit 41.4 % (33.0-51.0); Hemoglobin 13.6 g/dL (11.5-16.0); IMMATURE GRAN ABSOLUTE AUTO 0.06 K/mm3 (0.00-0.10); IMMATURE GRAN PERCENT AUTO 1 % (0-1); LYMPHOCYTES ABSOLUTE AUTO 2.17 K/mm3 (0.84-5.20); LYMPHOCYTES PERCENT AUTO 20 % (21-46); MONOCYTES ABSOLUTE AUTO 0.85 K/mm3 (0.16-1.47); MONOCYTES PERCENT AUTO 8 % (4-13); Mean Corpuscular HGB 32.2 pg (26.0-34.0); Mean Corpuscular HGB Conc 32.9 g/dL (31.5-36.5); Mean Corpuscular Volume 98 fL (80-100); Mean Platelet Volume 11.1 fL (9.1-12.4); NEUTROPHILS ABSOLUTE AUTO 7.73 K/mm3 (1.96-9.15); NEUTROPHILS PERCENT AUTO 70 % (41-73); Platelet Count 271 K/mm3 (150-400); RDW Coefficient Variation 13.2 % (11.7-14.2); RDW Standard Deviation 47.6 fL (35.1-46.3); Red Blood Cell Count 4.22 M/mm3 (3.80-5.20); White Blood Cell Count 11.03 K/mm3 (4.00-11.30)
[2017-10-05 05:25] LABS: Alanine Aminotransfer (ALT/SGP 48 U/L (12-78); Albumin, Blood 3.2 g/dL (3.4-5.0); Albumin/Globulin Ratio 0.8 (0.8-1.8); Alk Phos 65 U/L (50-136); Anion Gap 8 mmol/L (6-16); Aspartate Aminotrans (AST/SGOT 31 U/L (12-37); Bilirubin, Total 0.3 mg/dL (0.1-1.0); Blood Urea Nitrogen 14 mg/dL (8-24); Bun/Creatinine Ratio 24.2 (12.0-20.0); CO2, Blood 30 mmol/L (21-32); Calcium, Blood 9.4 mg/dL (8.5-10.1); Chloride, Blood 106 mmol/L (98-108); Creatinine, Blood 0.58 mg/dL (0.40-1.00); Dilantin (Phenytoin), Total 6.1 ug/mL (10.0-20.0); Glomerular Filtration Rate >60 (60-); Glucose, Blood 165 mg/dL (70-99); Potassium, Blood 3.6 mmol/L (3.5-5.5); Sodium, Blood 144 mmol/L (136-145); Total Protein, Blood 7.2 g/dL (6.4-8.2)
[2017-10-06 04:57] LABS: BASOPHILS ABSOLUTE AUTO 0.05 K/mm3 (0.00-0.23); BASOPHILS PERCENT AUTO 1 % (0-2); EOSINOPHILS PERCENT AUTO 2 % (0-6); Hematocrit 41.4 % (33.0-51.0); Hemoglobin 13.3 g/dL (11.5-16.0); IMMATURE GRAN ABSOLUTE AUTO 0.04 K/mm3 (0.00-0.10); IMMATURE GRAN PERCENT AUTO 1 % (0-1); LYMPHOCYTES PERCENT AUTO 29 % (21-46); MONOCYTES ABSOLUTE AUTO 0.78 K/mm3 (0.16-1.47); MONOCYTES PERCENT AUTO 9 % (4-13); Mean Corpuscular HGB Conc 32.1 g/dL (31.5-36.5); Mean Corpuscular Volume 100 fL (80-100); Mean Platelet Volume 11.2 fL (9.1-12.4); NEUTROPHILS ABSOLUTE AUTO 5.17 K/mm3 (1.96-9.15); NEUTROPHILS PERCENT AUTO 58 % (41-73); Platelet Count 271 K/mm3 (150-400); RDW Coefficient Variation 13.2 % (11.7-14.2); Red Blood Cell Count 4.16 M/mm3 (3.80-5.20); White Blood Cell Count 8.84 K/mm3 (4.00-11.30)
[2017-10-06 05:16] LABS: Anion Gap 8 mmol/L (6-16); Blood Urea Nitrogen 16 mg/dL (8-24); Bun/Creatinine Ratio 23.6 (12.0-20.0); CO2, Blood 30 mmol/L (21-32); Calcium, Blood 9.1 mg/dL (8.5-10.1); Chloride, Blood 108 mmol/L (98-108); Creatinine, Blood 0.68 mg/dL (0.40-1.00); Dilantin (Phenytoin), Total 5.7 ug/mL (10.0-20.0); Glomerular Filtration Rate >60 (60-); Glucose, Blood 146 mg/dL (70-99); Potassium, Blood 3.9 mmol/L (3.5-5.5); Sodium, Blood 146 mmol/L (136-145)
[2017-10-07 05:42] LABS: Dilantin (Phenytoin), Total 7.3 ug/mL (10.0-20.0)
[2017-10-08 04:43] LABS: Dilantin (Phenytoin), Total 6.1 ug/mL (10.0-20.0)
[2017-10-09 05:29] LABS: Dilantin (Phenytoin), Total 6.8 ug/mL (10.0-20.0)
[2017-10-10 05:08] LABS: Dilantin (Phenytoin), Total 5.1 ug/mL (10.0-20.0)
[2017-10-10] MEDS ORDERED: POTA20LUD PO (13:41)
== END 2017-10-10 14:49 | disposition home health service (06) | DRG 100 ==
LOC: ER 07:29 → MEDS 07:30 → ER 07:30 → MEDS 11:21 → ENPENDDIS 10-10 08:53 → MEDS 10-10 14:49
PROVIDERS: Emergency Medicine; Hospitalist; Internal Medicine
DX: G40.409 Other generalized epilepsy and epileptic syndromes, not intractable, without status epilepticus (principal); J69.0 Pneumonitis due to inhalation of food and vomit; I69.154 Hemiplegia and hemiparesis following nontraumatic intracerebral hemorrhage affecting left non-dominant side; J84.9 Interstitial pulmonary disease, unspecified; E03.9 Hypothyroidism, unspecified; M10.9 Gout, unspecified; E78.5 Hyperlipidemia, unspecified; G47.33 Obstructive sleep apnea (adult) (pediatric); K21.9 Gastro-esophageal reflux disease without esophagitis; E87.6 Hypokalemia; I10 Essential (primary) hypertension; Z79.84 Long term (current) use of oral hypoglycemic drugs; M35.00 Sjogren syndrome, unspecified; F32.9 Major depressive disorder, single episode, unspecified; D50.9 Iron deficiency anemia, unspecified; E11.40 Type 2 diabetes mellitus with diabetic neuropathy, unspecified; G47.9 Sleep disorder, unspecified; E83.42 Hypomagnesemia; Z99.81 Dependence on supplemental oxygen
CPT/HCPCS: 36415; 51701; 70450; 71045; 80048; 80053; 80185; 80186; 82550; 82947; 83735; 85025; 94640; 94660; 94667; 94760; 94761; 94762; 96374; 96375; 97110; 97162; 97165; 97530; 99285-25; G8978; G8979; G8987; G8988; J0696; J1815; J1940; J2060; J2405; J3010; J3475; J3480; J7030

== ENCOUNTER → 2017-10-17 | Outpatient (CLI) | payer MEDICARE, OTHER ==
[~2017-10-17] MED LIST changes: +AZO CRANBERRY1 EACH PO; +CENTRUM SILVER1 EAC3 PO; +PHENY100ER PO; +POTA20LUD PO; +SENNA LAXATIVE PO
[2017-10-17 17:28] LABS: Dilantin (Phenytoin), Total 18.1 ug/mL (10.0-20.0)
== END | disposition home or self-care (01) ==
LOC: LAB SHORT 14:50 → LAB 14:50
PROVIDERS: Internal Medicine
DX: I63.9 Cerebral infarction, unspecified (principal)
CPT/HCPCS: 80185

== ENCOUNTER 2017-10-20 15:11 | Emergency (ER) | payer MEDICARE, OTHER ==
[~2017-10-20] VITALS: Ht 157.5 cm; Wt 88.5 kg
[2017-10-20 16:52] LABS: Source, Urine Catheter
[2017-10-20 17:00] LABS: Appearance, Urine Clear (Clear); Blood, Urine Neg (Neg); Color, Urine Amber (P-Yellow); Glucose Qualitative, Urine Neg (Neg); Ketones, Urine Neg (Neg); Leukocyte Esterase, Urine 1+ (Neg); Nitrite, Urine Neg (Neg); Protein, Urine 1+ (Neg); Specific Gravity, Urine 1.025 (1.003-1.022); Urobilinogen, Urine 2+ (Normal)
[2017-10-20 17:12] LABS: BASOPHILS ABSOLUTE AUTO 0.09 K/mm3 (0.00-0.23); BASOPHILS PERCENT AUTO 1 % (0-2); EOSINOPHILS ABSOLUTE AUTO 0.16 K/mm3 (0.00-0.68); EOSINOPHILS PERCENT AUTO 2 % (0-6); Hematocrit 42.8 % (33.0-51.0); Hemoglobin 14.4 g/dL (11.5-16.0); IMMATURE GRAN ABSOLUTE AUTO 0.02 K/mm3 (0.00-0.10); IMMATURE GRAN PERCENT AUTO 0 % (0-1); LYMPHOCYTES ABSOLUTE AUTO 2.97 K/mm3 (0.84-5.20); LYMPHOCYTES PERCENT AUTO 34 % (21-46); MONOCYTES ABSOLUTE AUTO 0.63 K/mm3 (0.16-1.47); MONOCYTES PERCENT AUTO 7 % (4-13); Mean Corpuscular HGB 32.6 pg (26.0-34.0); Mean Corpuscular HGB Conc 33.6 g/dL (31.5-36.5); Mean Corpuscular Volume 97 fL (80-100); NEUTROPHILS ABSOLUTE AUTO 4.83 K/mm3 (1.96-9.15); NEUTROPHILS PERCENT AUTO 56 % (41-73); Platelet Count 420 K/mm3 (150-400); RDW Coefficient Variation 12.6 % (11.7-14.2); RDW Standard Deviation 45.3 fL (35.1-46.3); Red Blood Cell Count 4.42 M/mm3 (3.80-5.20)
[2017-10-20 17:13] LABS: Bilirubin, Urine 1+ (Neg)
[2017-10-20 17:14] LABS: Bacteria Few /hpf; Mucus Light (0-Heavy); Red Blood Cells, Urine Not Seen /hpf (0-2); Squamous Epithelial Cells Few /hpf (Few); White Blood Cells, Urine 0-2 /hpf (0-5)
[2017-10-20 17:23] LABS: Alanine Aminotransfer (ALT/SGP 61 U/L (12-78); Albumin, Blood 3.8 g/dL (3.4-5.0); Alk Phos 95 U/L (50-136); Anion Gap 10 mmol/L (6-16); Aspartate Aminotrans (AST/SGOT 41 U/L (12-37); Bilirubin, Total 0.3 mg/dL (0.1-1.0); Blood Urea Nitrogen 29 mg/dL (8-24); Bun/Creatinine Ratio 48.3 (12.0-20.0); CO2, Blood 27 mmol/L (21-32); Calcium, Blood 10.1 mg/dL (8.5-10.1); Chloride, Blood 103 mmol/L (98-108); Glomerular Filtration Rate >60 (60-); Glucose, Blood 109 mg/dL (70-99); Potassium, Blood 3.7 mmol/L (3.5-5.5); Sodium, Blood 140 mmol/L (136-145); Total Protein, Blood 7.8 g/dL (6.4-8.2)
[2017-10-20 18:08] LABS: Dilantin (Phenytoin), Total 22.7 ug/mL (10.0-20.0)
== END 2017-10-20 19:55 | disposition home or self-care (01) ==
LOC: ER 15:11
PROVIDERS: Nurse Practitioner Family
DX: E86.0 Dehydration (principal); I10 Essential (primary) hypertension; E03.9 Hypothyroidism, unspecified; K21.9 Gastro-esophageal reflux disease without esophagitis; F32.9 Major depressive disorder, single episode, unspecified; Z88.8 Allergy status to other drugs, medicaments and biological substances; Z88.2 Allergy status to sulfonamides; Z88.1 Allergy status to other antibiotic agents; Z88.5 Allergy status to narcotic agent; Z79.899 Other long term (current) drug therapy; Z79.84 Long term (current) use of oral hypoglycemic drugs; Z86.73 Personal history of transient ischemic attack (TIA), and cerebral infarction without residual deficits
CPT/HCPCS: 71045; 80053; 80185; 81001; 85025; 87086; 93005; 93010; 96360; 96361; 99285-25; J7030; P9612

== ENCOUNTER → 2017-10-30 | Outpatient (CLI) | payer MEDICARE, OTHER ==
[2017-10-30 18:59] LABS: Dilantin (Phenytoin), Total 14.9 ug/mL (10.0-20.0)
== END ==
LOC: LAB SHORT 17:59 → LAB 17:59
PROVIDERS: Internal Medicine
DX: G40.909 Epilepsy, unspecified, not intractable, without status epilepticus (principal)
CPT/HCPCS: 80185

== ENCOUNTER → 2017-10-31 | Outpatient (CLI) | payer MEDICARE, OTHER ==
[2017-10-31 15:09] LABS: Alanine Aminotransfer (ALT/SGP 116 U/L (12-78); Albumin, Blood 3.6 g/dL (3.4-5.0); Alk Phos 103 U/L (50-136); Anion Gap 10 mmol/L (6-16); Aspartate Aminotrans (AST/SGOT 65 U/L (12-37); Bilirubin, Total 0.5 mg/dL (0.1-1.0); Blood Urea Nitrogen 21 mg/dL (8-24); Bun/Creatinine Ratio 38.1 (12.0-20.0); CO2, Blood 26 mmol/L (21-32); Calcium, Blood 9.4 mg/dL (8.5-10.1); Chloride, Blood 105 mmol/L (98-108); Creatinine, Blood 0.55 mg/dL (0.40-1.00); Dilantin (Phenytoin), Total 10.1 ug/mL (10.0-20.0); Globulin, Blood 3.7 g/dL (2.2-4.0); Glomerular Filtration Rate >60 (60-); Glucose, Blood 84 mg/dL (70-99); Potassium, Blood 3.7 mmol/L (3.5-5.5); Sodium, Blood 141 mmol/L (136-145); Total Protein, Blood 7.3 g/dL (6.4-8.2)
== END ==
LOC: LAB SHORT 14:39 → LAB 14:39
PROVIDERS: Psychiatry & Neurology Neurology
DX: G40.909 Epilepsy, unspecified, not intractable, without status epilepticus (principal); I69.354 Hemiplegia and hemiparesis following cerebral infarction affecting left non-dominant side; I67.9 Cerebrovascular disease, unspecified
CPT/HCPCS: 80053; 80185

== ENCOUNTER → 2017-11-21 | Outpatient (CLI) | payer MEDICARE, OTHER ==
[2017-11-21 13:43] LABS: Alanine Aminotransfer (ALT/SGP 32 U/L (12-78); Albumin, Blood 3.5 g/dL (3.4-5.0); Alk Phos 74 U/L (50-136); Anion Gap 9 mmol/L (6-16); Aspartate Aminotrans (AST/SGOT 14 U/L (12-37); Bilirubin, Total 0.3 mg/dL (0.1-1.0); Blood Urea Nitrogen 21 mg/dL (8-24); Bun/Creatinine Ratio 36.7 (12.0-20.0); CO2, Blood 29 mmol/L (21-32); Calcium, Blood 9.3 mg/dL (8.5-10.1); Chloride, Blood 104 mmol/L (98-108); Creatinine, Blood 0.57 mg/dL (0.40-1.00); Globulin, Blood 3.6 g/dL (2.2-4.0); Glomerular Filtration Rate >60 (60-); Glucose, Blood 110 mg/dL (70-99); Potassium, Blood 3.5 mmol/L (3.5-5.5); Sodium, Blood 142 mmol/L (136-145); Total Protein, Blood 7.1 g/dL (6.4-8.2)
== END | disposition home or self-care (01) ==
LOC: LAB SHORT 11:55 → LAB 11:55
PROVIDERS: Internal Medicine
DX: I69.354 Hemiplegia and hemiparesis following cerebral infarction affecting left non-dominant side (principal); G40.909 Epilepsy, unspecified, not intractable, without status epilepticus; I10 Essential (primary) hypertension; I67.9 Cerebrovascular disease, unspecified; R13.12 Dysphagia, oropharyngeal phase
CPT/HCPCS: 80053